=== PATIENT | female | born 1970 ===

== ENCOUNTER → 2017-05-08 | Outpatient (REF) | payer OTHER, MEDICAID ==
[2017-05-08 18:45] LABS: CRYSTALS, BODY FLUID NONE SEEN (NONE SEEN); SYNOVIAL FLUID COLOR YELLOW (YELLOW)
[2017-05-08 19:14] LABS: BF MONONUCLEAR CELL % 88.8 % (0-0); BF POLYMORPHONUCLEAR CELL % 11.2 % (0-0); RBC BODY FLUID < 2 10^3/uL (<2); WBC BODY FLUID 90 /uL (0-10)
[2017-05-08 19:15] LABS: BF DIFF IF INDICATED? YES (NO)
== END ==
LOC: M LAB REF 16:36
PROVIDERS: ATTEND Internal Medicine Rheumatology
DX: M17.11 Unilateral primary osteoarthritis, right knee (principal)